=== PATIENT | female | born 1980 | race Caucasian/White ===

== ENCOUNTER 2017-08-31 10:26 | Emergency (ER) | payer OTHER, BC ==
[2017-08-31 10:32] VITALS: BP 110/78; PULSE 86; RESP 14; TEMP 97.4; O2SAT 100
[2017-08-31] MEDS ORDERED: Tdap Vaccine 0.5 ml Vial (10-64 yrs) IM ONE (10:40)
--- NOTE | 2017-08-31 10:43 | C.PDOC ---
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 No break in skin. Immediately washed area and applied bacitacin. No other complaints. 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 Time Seen by Provider: 08/31/17 10:36 Chief Complaint (Nursing): Medical Clearance Past Medical History Vital Signs: Last Vital Signs Temp 97.4 F L 08/31/17 10:32 Pulse 86 08/31/17 10:32 Resp 14 08/31/17 10:32 BP 110/78 08/31/17 10:32 Pulse Ox 100 08/31/17 12:39 Family History: States: No Known Family Hx - Social History Hx Alcohol Use: No Hx Substance Use: No - Immunization History Hx Tetanus Toxoid Vaccination: No Hx Influenza Vaccination: Yes Hx Pneumococcal Vaccination: No Review Of Systems Constitutional: Negative for: Fever, Chills Cardiovascular: Negative for: Chest Pain Respiratory: Negative for: Cough, Hemoptysis, SOB with Excertion, Wheezing Gastrointestinal: Negative for: Nausea, Vomiting, Constipation Genitourinary: Negative for: Dysuria Skin: Positive for: Other (scratch to L 2nd digit) Neurological: Negative for: Weakness, Numbness Physical Exam - Physical Exam Appears: Well, No Acute Distress Head: Atraumatic, Normacephalic Eye(s): bilateral: Normal Inspection, PERRL, EOMI Nose: Normal Neck: Normal, Supple Extremity: Normal ROM, No Tenderness, No Swelling (normal ROM, strength. distal pulses intact. No break in skin. no redness), Other Neurological/Psych: Oriented x3 Gait: Steady ED Course And Treatment O2 Sat by Pulse Oximetry: 100 Progress Note: No break in skin. Patient had already washed area and applied bacitracin prior to my evaluation. No indication for HIV or Hepatitis prophylaxis. Tetanus was updated. Instructed to follow-up with employee health Disposition - Disposition Disposition: HOME/ ROUTINE Disposition Time: 10:44 Condition: GOOD Additional Instructions: Follow-up with Employee health. Return to ED if condition worsens. Instructions: Skin Abrasions Forms: [employer] ([place]) - Clinical Impression Clinical Impression: Abrasion hand
== END 2017-08-31 11:09 | disposition home or self-care (01) ==
LOC: C.ER 10:26
DX: S60.512A Abrasion of left hand, initial encounter (principal); W50.4XXA Accidental scratch by another person, initial encounter; Y92.238 Other place in hospital as the place of occurrence of the external cause; Y99.0 Civilian activity done for income or pay; Z23 Encounter for immunization

== ENCOUNTER 2018-05-29 20:52 | Emergency (ER) | payer BC, OTHER ==
[2018-05-29 21:23] VITALS: BP 130/99; PULSE 92; RESP 20; TEMP 98.1; O2SAT 100
[2018-05-29] MEDS ORDERED: Iohexol 240 (50 ml) PO STA (21:33)
[2018-05-29] MEDS ORDERED: Sodium Chloride 0.9% 1,000 ML IV STA (21:35)
[2018-05-29 21:58] LABS: BASO % 0.6 % (0.0-2.0); EOS # 0.2 K/uL (0.0-0.7); EOS % 3.6 % (0.0-4.0); HEMOGLOBIN 13.3 g/dL (11.0-16.0); LYMPH # 2.2 K/uL (1.0-4.3); LYMPH % 35.2 % (20.0-40.0); MEAN CELL VOLUME 92.7 fL (81.0-99.0); MEAN CORPUSCULAR HEMOGLOBIN 30.6 pg (27.0-31.0); MEAN PLATELET VOLUME 7.7 fL (7.2-11.7); MONO # 0.4 K/uL (0.0-0.8); MONO % 6.8 % (0.0-10.0); NEUT # 3.4 K/uL (1.8-7.0); NEUT % 53.8 % (50.0-75.0); RBC 4.35 Mil/uL (3.80-5.20); RED CELL DISTRIBUTION WIDTH 12.4 % (11.5-14.5); WHITE BLOOD COUNT 6.3 K/uL (4.8-10.8)
[2018-05-29] MEDS ORDERED: Iohexol 240 (50 ml) ONE (21:58)
[2018-05-29 22:01] LABS: HCG,QUALITATIVE URINE NEGATIVE (NEGATIVE)
[2018-05-29 22:04] LABS: SQUAMOUS EPITHIAL 2 /hpf (0-5); URINE BACTERIA RARE (<OCC); URINE BILIRUBIN NEGATIVE (NEGATIVE); URINE BLOOD 1+ (NEGATIVE); URINE CLARITY Clear (Clear); URINE COLOR Yellow (YELLOW); URINE GLUCOSE (UA) NORMAL (Normal); URINE LEUKOCYTE ESTERASE TRACE Leu/uL (Negative); URINE PROTEIN NEGATIVE (NEGATIVE); URINE UROBILINOGEN NORMAL mg/dL (0.2-1.0)
--- NOTE | 2018-05-29 22:04 | C.PDOC ---
History Of Present Illness 37 y/o female presents to the ED complaining of abdominal pain, mostly to LUQ and the left subcostal area, for 4 days. Pain worsens after she eats. Denies any SOB or coughing. 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 She received partial chemotherapy but did not finish. Otherwise she denies any vomiting, diarrhea, or dark or bloody stools. No fever or chills. <Cecelia Sigala - Last Filed: 05/29/18 22:49> History Per: Patient History/Exam Limitations: no limitations Onset/Duration Of Symptoms: Days Current Symptoms Are (Timing): Still Present Location Of Pain/Discomfort: LUQ Exacerbating Factors: Food <Cecelia Sigala - Last Filed: 05/29/18 22:49> <Maximo Gutierrez M - Last Filed: 05/30/18 00:24> Time Seen by Provider: 05/29/18 21:16 Chief Complaint (Nursing): Abdominal Pain Past Medical History Reviewed: Historical Data, Nursing Documentation, Vital Signs Vital Signs: Last Vital Signs Temp 98.1 F 05/29/18 21:20 Pulse 92 H 05/29/18 21:20 Resp 20 05/29/18 21:20 BP 130/99 H 05/29/18 21:20 Pulse Ox 100 05/29/18 21:20 - Medical History 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 Constitutional: Negative for: Fever, Chills Cardiovascular: Negative for: Chest Pain Respiratory: Negative for: Cough, Shortness of Breath Gastrointestinal: Positive for: Nausea, Abdominal Pain (LUQ). Negative for: V omiting, Diarrhea, Melena, Hematochezia Musculoskeletal: Negative for: Back Pain Neurological: Negative for: Weakness, Dizziness <Cecelia Sigala - Last Filed: 05/29/18 22:49> Physical Exam - Physical Exam Appears: Non-toxic, No Acute Distress Skin: Warm, Dry Head: Atraumatic, Normacephalic Eye(s): bilateral: PERRL, EOMI Oral Mucosa: Moist Neck: Normal ROM Chest: Symmetrical Cardiovascular: Rhythm Regular, No Murmur Respiratory: Normal Breath Sounds, No Accessory Muscle Use, Other (Speaking in full sentences) Gastrointestinal/Abdominal: Soft, Tenderness (to the LUQ, mild), No Guarding, No Rebound Back: Normal Inspection, No CVA Tenderness Extremity: Bilateral: Atraumatic, Normal Color And Temperature, Normal ROM Pulses: Left Dorsalis Pedis: Normal, Right Dorsalis Pedis: Normal Neurological/Psych: Oriented x3, Normal Speech Gait: Steady <Cecelia Sigala - Last Filed: 05/29/18 22:49> ED Course And Treatment - Laboratory Results Result Diagrams: 05/29/18 21:54 05/29/18 21:54 O2 Sat by Pulse Oximetry: 100 (RA) Pulse Ox Interpretation: Normal Progress Note: Blood work and urine sent to the lab. Administered IV fluids, 4 mg IV Zofran, and [address] scan pending. Spoke with veterinary laboratory technician, who suggested ordering CT chest/abd/pelvis to ensure subcostal space is included. <Cecelia Sigala - Last Filed: 05/29/18 22:49> - Laboratory Results Result Diagrams: 05/29/18 21:54 05/29/18 21:54 Lab Results: Total Bilirubin 0.6 mg/dL (0.2-1.3) 05/29/18 21:54 AST 33 U/L (14-36) 05/29/18 21:54 ALT 12 U/L (9-52) 05/29/18 21:54 Alkaline Phosphatase 55 U/L (38-126) 05/29/18 21:54 Total Protein 8.6 g/dL (6.3-8.3) H 05/29/18 21:54 Albumin 4.8 g/dL (3.5-5.0) 05/29/18 21:54 Globulin 3.9 gm/dL (2.2-3.9) 05/29/18 21:54 Albumin/Globulin Ratio 1.2 (1.0-2.1) 05/29/18 21:54 Lipase 217 U/L (23-300) 05/29/18 21:54 Urine Color Yellow (YELLOW) 05/29/18 21:54 Urine Clarity Clear (Clear) 05/29/18 21:54 Urine pH 6.0 (5.0-8.0) 05/29/18 21:54 Ur Specific [place] 1.011 (1.003-1.030) 05/29/18 21:54 Urine Protein Negative mg/dL (NEGATIVE) 05/29/18 21:54 Urine Glucose (UA) Normal mg/dL (Normal) 05/29/18 21:54 Urine Ketones Negative mg/dL (NEGATIVE) 05/29/18 21:54 Urine Blood 1+ (NEGATIVE) H 05/29/18 21:54 Urine Nitrate Negative (NEGATIVE) 05/29/18 21:54 Urine Bilirubin Negative (NEGATIVE) 05/29/18 21:54 Urine Urobilinogen Normal mg/dL (0.2-1.0) 05/29/18 21:54 Ur Leukocyte Esterase Trace Dana/uL (Negative) 05/29/18 21:54 Urine WBC (Auto) 2 /hpf (0-5) 05/29/18 21:54 Urine RBC (Auto) 1 /hpf (0-3) 05/29/18 21:54 Ur Squamous Epith Cells 2 /hpf (0-5) 05/29/18 21:54 Urine Bacteria Rare (<OCC) 05/29/18 21:54 Urine HCG, Qual Negative (NEGATIVE) 05/29/18 21:54 Urine HCG, Qual Negative (NEGATIVE) 05/29/18 21:54 <Maximo Gutierrez - Last Filed: 05/30/18 00:24> Medical Decision Making Medical Decision Making: Received patient in s/o Ct scan as documented will discharge patient home to follow up with pmd within 2 days. <Maximo Gutierrez - Last Filed: 05/30/18 00:24> Disposition - Disposition Disposition Time: 23:00 <Cecelia Sigala - Last Filed: 05/29/18 22:49> - Disposition Disposition Time: 00:22 <Maximo Gtuierrez - Last Filed: 05/30/18 00:24> - Disposition Referrals: [facility] [Outside] Disposition: HOME/ ROUTINE Condition: STABLE Additional Instructions: follow up with your doctor within 2 days call to make an appointment take medications as prescribed return to ER if symptoms worsens or progress Prescriptions: Famotidine [Pepcid] 20 mg PO BID #20 tab Ondansetron ODT [Zofran ODT] 4 mg PO TID PRN #12 odt PRN Reason: Nausea/Vomiting Instructions: Acute Abdomen (Belly Pain), Adult (DC) Forms: [employer] ([place]ian), General Discharge Instructions, Work Excuse - Clinical Impression Clinical Impression: Abdominal pain - PA / PEDIATRIC SPEECH LANGUAGE PATHOLOGIST / Resident Statement MD/DO has reviewed & agrees with the documentation as recorded. - Scribe Statement The provider has reviewed the documentation as recorded by the Jackibchris Sahni All medical record entries made by the Jackibe were at my direction and personally dictated by me. I have reviewed the chart and agree that the record accurately reflects my personal performance of the history, physical exam, medical decision making, and the department course for this patient. I have also personally directed, reviewed, and agree with the discharge instructions and disposition. <Cecelia Sigala - Last Filed: 05/29/18 22:49> Physician Patient Turnover Patient Signed Over To: Maximo Gutierrez Handoff Comments: pending CT chest/abdomen/pelvis <Cecelia Sigala - Last Filed: 05/29/18 22:49>
[2018-05-29 22:10] LABS: BLOOD UREA NITROGEN 16 mg/dL (7-17); CALCIUM 9.5 mg/dl (8.6-10.4); GFR NON-AFRICAN AMERICAN > 60; LIPASE 217 U/L (23-300)
[2018-05-29 22:11] LABS: ALB/GLOB RATIO 1.2 (1.0-2.1); ALBUMIN 4.8 g/dL (3.5-5.0); ALT/SGPT 12 U/L (9-52); AST/SGOT 33 U/L (14-36)
[2018-05-29] MEDS ORDERED: Iodixanol 320 MG/ML 100 ML BOTTLE IV ONE (23:29)
--- NOTE | 2018-05-30 17:32 | CT ---
CT chest abdomen and pelvis HISTORY: Malignancy. Pain. Comparison: None available. Technique: Multiple contiguous axial images were performed through the chest abdomen and pelvis with the use of intravenous contrast. Subsequently, sagittal and coronal reformatted images were obtained. This CT exam was performed using one or more of the following dose reduction techniques: Automated exposure control, adjustment of the mA and/or kV according to patient size, and/or use of iterative reconstruction technique. Findings: CT chest: Loss of volume in the left hemithorax, possibly secondary to post surgical interventions/lobectomy. Clinical correlation. Chronic deformities of the left ribs. Abberant right subclavian artery, normal variant. Normal enhancement of the main pulmonary artery as well as the right and left pulmonary arteries. Normal enhancement of the bilateral peripheral pulmonary arteries. No demonstrated pulmonary embolism. Normal thoracic aorta and visualized great vessels. No demonstrated aortic dissection. Normal heart and pericardium. Shotty axillary lymph nodes. 2 millimeter nodule in the right thyroid lobe. Correlation with thyroid ultrasound may be helpful. Visualized trachea and bronchi are preserved. No pleural or pericardial effusion. Multifocal post intervertebral disc fusion of the lower cervical/upper thoracic levels, chronic/congenital finding. Secondary increased kyphosis at the level of the upper thoracic spine. 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 CT abdomen and pelvis: Surgical changes adjacent to the gastroesophageal junction. Colonic diverticulosis. Liver and spleen are grossly preserved. Gallbladder and pancreas are grossly preserved. Adrenal glands are grossly preserved. Kidneys are grossly preserved. No findings to suggest acute appendicitis. No significant abdominal or pelvic ascites or lymphadenopathy. Urinary bladder grossly preserved. Spinal findings as described above. Sclerosis at the right SI joint with a 1.6 centimeters sclerotic focus noted at that level. Impression: Negative acute chest abdomen and pelvis 2 millimeter nodule in the right thyroid lobe. Correlation with thyroid ultrasound may be helpful. Additional findings as above. A preliminary report was generated at 12:18 a.m. on 05/30/[address] Huyen Allen from [employer]
== END 2018-05-30 00:42 | disposition home or self-care (01) ==
LOC: EDBD 20:52 → C.ER 20:52
DX: R10.12 Left upper quadrant pain (principal)
CPT/HCPCS: 71260; 74177; 80053; 81001; 83690; 84703; 85025; 96361; 96374; 96375; 99284; J2405; J7030; Q9966; Q9967